=== PATIENT | male | born 1995 | race Caucasian/White ===

== ENCOUNTER 2016-12-06 19:20 | Emergency (ER) | payer BC ==
[2016-12-06 20:06] VITALS: BP 132/77
[2016-12-06] MEDS ORDERED: Omeprazole 20 MG Cap.CR PO ONE (20:34)
[2016-12-06] MEDS ORDERED: Ondansetron 4 MG Tab.DIS PO ONE (20:34)
--- NOTE | 2016-12-07 02:00 | ER ---
DATE SEEN: 12/06/2016 REASON FOR VISIT: Abdominal pain. HISTORY OF PRESENT ILLNESS: This is a 21-year-old male with epigastric pain for the last six months or so. Sharp pain, moderate to severe, gets worse with certain foods, associated with vomiting, but no diarrhea. REVIEW OF SYSTEMS: No fever or chills. He admits to having using ibuprofen or Motrin for neck pain along with alcohol every 3 to 4 days. He has lost about 15 pounds in the month. SOCIAL HISTORY: Otherwise, nonsmoker. PAST MEDICAL HISTORY: Healthy with no active medical problems or surgeries. PHYSICAL EXAMINATION: GENERAL: He is well nourished, pale. VITAL SIGNS: Blood pressure is normal. Pulse is 98. ENT: Negative. NECK: No masses. CARDIOVASCULAR: Normal. ABDOMEN: Soft and benign with no masses or tenderness. LABORATORY STUDIES: Normal white cell count and hemoglobin. Amylase 43. IMPRESSION: Peptic ulcer disease. PLAN: I will send him home with omeprazole 20 mg a day, Zofran 4 mg q.6 hours p.r.n., and advised him to have stool for Helicobacter pylori, and follow up in the office next week on Saturday. TIME SEEN: 7:30 p.m. /[id number] ILYA/MEENAKSHI
== END 2016-12-06 20:47 | disposition home or self-care (01) ==
LOC: FB.ED 19:20
DX: K27.9 Peptic ulcer, site unspecified, unspecified as acute or chronic, without hemorrhage or perforation (principal)
CPT/HCPCS: 80053; 82150; 83605; 85025; 99283; A9270; 36415; 87338